=== PATIENT | female | born 1975 | race African-American/Black ===

== ENCOUNTER → 2016-06-10 | Outpatient (CLI) | payer BC ==
--- NOTE | 2016-06-10 11:39 | MG ---
HISTORY: SCREENING Comparison: None FINDINGS: Bilateral CC and MLO projections of the right and left breast were obtained. Heterogeneously dense fibroglandular tissue is seen to be present. No dominant suspicious architectural distortion, mass or clustered microcalcifications can be observed to suggest malignancy. However , there are subtle m edial right breast nodules at mid depth which are partially obscured and partially circumscribed mos t likely reflecting cysts, fibroadenomas , or intramammary lymph nodes but for which further evaluat ion is recommended . Also noted is focal asymmetry at 12-1 o'clock also at mid depth most likely ref lecting benign asymmetrical fibroglandular parenchyma but for which further imaging evaluation is ag ain recommended. No skin thickening or nipple retraction is appreciated. No pathological lymphaden opathy can be identified. IMPRESSION: Right breast nodularity and focal asymmetry for which follow up spot magnification and ML views are recommended. Targeted sonography is recommended as well. Ultrasound should be performed from 9-6 o'clock clockwise. ACR CATEGORY 0 - assessment incomplete; additional imaging recommended. Diagnostic CAD was utilized and reviewed. * 0 (ZERO) - ASSESSMENT INCOMPLETE; ADDITIONAL IMAGING IS NEEDED. * 1/1 (ONE) - NEGATIVE. * 2/II (TWO) - BENIGN FINDINGS. * 3/III (THREE) - PROBABLY BENIGN FINDING; SHORT INTERVAL FOLLOW-UP SUGGESTED. * 4/IV (FOUR) - SUSPICIOUS ABNORMALITY; BIOPSY SHOULD BE CONSIDERED. * 5/V (FIVE) - HIGHLY SUSPICIOUS OF MALIGNANCY; BIOPSY SHOULD BE PERFORMED. A NEGATIVE X-RAY REPORT SHOULD NOT DELAY BIOPSY IF A DOMINANT OR CLINICALLY SUSPICIOUS MASS IS PRESENT; 4 TO 8 PERCENT OF CANCERS ARE NOT IDENTIFIED BY X-RAY. A NEG ATIVE REPORT MAY REINFORCE THE CLINICAL IMPRESSION. ADENOSIS AND DENSE BREASTS MAY OBSCURE AN UNDER LYING NEOPLASM. Reported By:
== END ==
LOC: RAD 08:44
PROVIDERS: ATTEND Specialist
DX: Z12.31 Encounter for screening mammogram for malignant neoplasm of breast (principal)
CPT/HCPCS: 77067

== ENCOUNTER → 2016-06-17 | Outpatient (CLI) | payer BC ==
--- NOTE | 2016-06-17 15:01 | US ---
HISTORY: Abnormal baseline screening mammography with right breast nodules and focal asymmetry, sofi or history of parenchymal cysts Right breast digital diagnostic mammography with CAD and right breast ultrasound. Comparison: June 10, 2016 FINDINGS: Mammogram: Spot magnification and ML views of the right breast were obtained. Heterogeneously dense fibroglandular tissue is seen to be present. There is no architectural distortion. The upper outer focal asymmetry becomes less prominent. There are persistent partially obscured and partially circu mscribed isodense nodules in the upper medial and lower medial quadrants which will be correlated wi th ultrasound. No skin thickening or nipple retraction is appreciated. No pathological lymphadeno jesenia can be identified. Ultrasound: Multiple grayscale and color Doppler images of the right breast were obtained from 9-6 o 'clock. There are numerous horizontally oriented macro lobulated but smoothly marginated and well ci rcumscribed predominantly anechoic cyst with posterior acoustical enhancement and no internal Dopple r flow the largest of which is located at 4 o'clock measuring 1.1 cm and felt to correspond to the d ominant mammographic nodule. The majority of the cysts demonstrate internal debris and septations, b ut there is no suspicious peripheral nodular component. Findings are most compatible with benign mil dly complex parenchymal cysts. No suspicious solid nodules are seen to warrant biopsy. In the settin g of clinically suspicious palpable findings, ultrasound-guided aspiration could be performed. IMPRESSION: NO RADIOGRAPHIC EVIDENCE OF MALIGNANCY. ACR CATEGORY 2 - benign findings. FOLLOW-UP EXAM 1 YEAR. Diagnostic CAD was utilized and reviewed. * 0 (ZERO) - ASSESSMENT INCOMPLETE; ADDITIONAL IMAGING IS NEEDED. * 1/1 (ONE) - NEGATIVE. * 2/II (TWO) - BENIGN FINDINGS. * 3/III (THREE) - PROBABLY BENIGN FINDING; SHORT INTERVAL FOLLOW-UP SUGGESTED. * 4/IV (FOUR) - SUSPICIOUS ABNORMALITY; BIOPSY SHOULD BE CONSIDERED. * 5/V (FIVE) - HIGHLY SUSPICIOUS OF MALIGNANCY; BIOPSY SHOULD BE PERFORMED. A NEGATIVE X-RAY REPORT SHOULD NOT DELAY BIOPSY IF A DOMINANT OR CLINICALLY SUSPICIOUS MASS IS PRESENT; 4 TO 8 PERCENT OF CANCERS ARE NOT IDENTIFIED BY X-RAY. A NEG ATIVE REPORT MAY REINFORCE THE CLINICAL IMPRESSION. ADENOSIS AND DENSE BREASTS MAY OBSCURE AN UNDER LYING NEOPLASM. Reported By:
== END ==
LOC: RAD 13:43
PROVIDERS: ATTEND Specialist
DX: R92.8 Other abnormal and inconclusive findings on diagnostic imaging of breast (principal)
CPT/HCPCS: 76642; 77065

== ENCOUNTER 2017-01-29 15:14 | Emergency (ER) | payer BC ==
[2017-01-29 15:20] VITALS: BP 152/91; BMI 28.3
--- NOTE | 2017-01-29 16:12 | DR.GENAD ---
HPI - PCP Primary Care Physician: Ramesh - Complaint/Symptoms Chief Complaint Doctors Comments: Patient had a T&A on the ; she was given prescription for tylenol with codeine 8oz. Patient is out of mediation Chief Complaint:: "I got my tonsils taken out 01/25/17 and I have been in a lot of pain. I ran out of my medication and I need something to help with the pain until the doctor's office opens." - Source History Provided: Patient - Mode of Arrival Mode of Arrival: Ambulatory - Timing Onset of Chief Complaint: 01/25/17 PMH - PMH Past Medical History: No Past Surgical History: Yes Surgical History: Tonsillectomy - Family History History of Family Medical Conditions: Yes Family Medical History: Diabetes Mellitus, Cancer, Hypertension - Social History Does patient currently use any type of tobacco product: No Have you used tobacco products in the last 12 months: No Type of Tobacco Use: None Does any household member use tobacco: No Alcohol Use: None Do you use any recreational Drugs:: No Lives With: Family Lives Where: Home - infectious screening In the last 2 months have you had wt loss of >10#?: NO Have you had fever, night sweats or hemotysis?: No Have you traveled outside the country in the last 6 months?: No Isolation: Standard ROS - Review of Systems Eyes: No Symptoms Reported ENTM: No Symptoms Reported Respiratoy: No Symptoms Reported Cardiovascular: No Symptoms Reported Gastrointestinal/Abdominal: No Symptoms Reported Genitourinary: No Symptoms Reported Neurological: No Symptoms Reported Musculoskeletal: No Symptoms Reported Integumentary: No Symptoms Reported Hematologic/Lymphatic: No Symptoms Reported Endocrine: No Symptoms Reported Psychiatric: No Symptoms Reported All Other Systems: Reviewed and Negative PE - Vital Signs Vitals: Temperature 98.6 F Pulse Rate 77 Respiratory Rate 17 Blood Pressure 152/91 O2 Sat by Pulse Oximetry 98 - General Limitations: No Limitations General Appearance: Alert, In No Apparent Distress - Head Head Exam: Normal Inspection, Atraumatic - ENT ENT Exam: Normal Exam, Other (Posterior tonsillar pillow without erythema) External Ear Exam: Normal External Inspection TM/Canal Exam: Bilateral Normal Nose Exam: Normal Nose Exam Mouth Exam: Normal Inspection Throat Exam: Normal Inspection - Neck Neck Exam: Normal Inspection - Chest Chest Inspection: Normal Inspection - Respiratory Respiratory Exam: Normal Lung Sounds Bilat Respiratory Exam: Bilateral Clear to Auscultation - Cardiovascular Cardiovascular Exam: Regular Rate, Normal Rhythm - Abdominal Exam Abdominal Exam: Normal Inspection Abdominal Tenderness: negative: RUQ, RLQ, LUQ, LLQ, Epigastrium, Suprapubic, Diffuse, Mild, Moderate, Severe, Other - Extremities Extremities Exam: Normal Inspection, Full ROM - Back Back Exam: Normal Inspection, Full ROM - Neurologic Neurological Exam: Alert, Oriented X3, CN II-XII Intact - Psychiatric Psychiatric Exam: Normal Affect, Normal Mood - Skin Skin Exam: Warm, Dry, Intact - Diagnosis Discharge Problem: S/P tonsillectomy - Discharge Plan Condition: Stable - Follow ups/Referrals Follow ups/Referrals: AGUSTINA ZALDIVAR [Primary Care Provider] - 3 days - Instructions
== END 2017-01-29 16:28 | disposition home or self-care (01) ==
LOC: ER 15:14
DX: Z90.89 Acquired absence of other organs (principal)
CPT/HCPCS: 99281; 99282

== ENCOUNTER → 2017-02-21 | Outpatient (CLI) | payer BC ==
[2017-01-29 15:20] VITALS: BP 152/91
[2017-02-21 10:22] LABS: FREE T4 (FREE THYROXINE) 0.84 ng/dL (0.76-1.46); TSH (3RD GENERATION) 1.846 uIU/mL (0.358-3.74)
== END ==
LOC: LAB 09:34
DX: E04.1 Nontoxic single thyroid nodule (principal)
CPT/HCPCS: 36415; 84439; 84443

== ENCOUNTER → 2017-06-21 | Outpatient (CLI) | payer BC ==
--- NOTE | 2017-06-21 14:03 | MG ---
HISTORY: SCREENING Comparison: June 2016 FINDINGS: Bilateral CC and MLO projections of the right and left breast were obtained. Heterogeneously dense f ibroglandular tissue is seen to be present without significant interval change. No suspicious tonya ectural distortion, mass or clustered microcalcifications can be observed to suggest malignancy. No skin thickening or nipple retraction is appreciated. No pathological lymphadenopathy can be identif ied. Benign-appearing calcifications are noted within the right and left breast. IMPRESSION: NO RADIOGRAPHIC EVIDENCE OF MALIGNANCY. ACR CATEGORY 2 - benign findings. FOLLOW-UP EXAM 1 YEAR. Diagnostic CAD was utilized and reviewed. * 0 (ZERO) - ASSESSMENT INCOMPLETE; ADDITIONAL IMAGING IS NEEDED. * 1/ (ONE) - NEGATIVE. * 2/II (TWO) - BENIGN FINDINGS. * 3/III (THREE) - PROBABLY BENIGN FINDING; SHORT INTERVAL FOLLOW-UP SUGGESTED. * 4/IV (FOUR) - SUSPICIOUS ABNORMALITY; BIOPSY SHOULD BE CONSIDERED. * 5/V - HIGHLY SUSPICIOUS OF MALIGNANCY; BIOPSY SHOULD BE PERFORMED. A NEGATIVE X-RAY REPORT SHOULD NOT DELAY BIOPSY IF A DOMINANT OR CLINICALLY SUSPICIOUS MASS IS PRESENT; 4 TO 8 PERCENT OF CANCERS ARE NOT IDENTIFIED BY X-RAY. A NEGA TIVE REPORT MAY REINFORCE THE CLINICAL IMPRESSION. ADENOSIS AND DENSE BREASTS MAY OBSCURE AN UNDERLY ING NEOPLASM. Reported By:
== END ==
LOC: RAD 10:11
PROVIDERS: ATTEND Specialist
DX: Z12.31 Encounter for screening mammogram for malignant neoplasm of breast (principal)
CPT/HCPCS: 77067